=== PATIENT | male | born 1945 | race Caucasian/White ===

== ENCOUNTER → 2022-05-17 11:16 | Outpatient (CLI) | payer MEDICARE, SELFPAY ==
--- NOTE | ~2022-05-17 | XR_ITS ---
EXAMINATION: XR lumbar spine 2-3V DATE: 05/17/2022 11:38 INDICATION: Low back pain TECHNIQUE: Anteroposterior and lateral views of the lumbar spine, and cone-down lateral view of the l umbosacral junction were obtained. COMPARISON: None FINDINGS: There are 4 mm of retrolisthesis of L2 on L3 and 2 mm of anterolisthesis of L3 on L4. The v ertebral body heights are normal. Laminectomy changes are present at L4-5. There is severe loss of in tervertebral disc space height at L2-3 and L3-4 and moderate loss of disc space height throughout the remainder of the lumbar spine. Degenerative osteophytes project from the anterior endplates of multi ple vertebral bodies. Cholelithiasis is noted. There is moderate osteoarthritis of the hips. IMPRESSION: 1. Severe lumbar spondylosis without acute findings. Reviewed, dictated and finalized at location B.
== END ==
PROVIDERS: PCP Nurse Practitioner; Visit Provider Nurse Practitioner
DX: M47.896 Other spondylosis, lumbar region (principal)
CPT/HCPCS: 72100

== ENCOUNTER 2022-07-12 08:30 | Outpatient (RCR) | payer MEDICARE, SELFPAY ==
--- NOTE | 2022-06-14 08:16 | BUPTOPEVAL1 ---
Assessment and note entered by Anastasiya Santizo, PT Evaluation Information Assessment Status Evaluation Diagnosis low back pain Onset 05/14/22 Subjective Information Was at driving range day before, was hitting a 100 balls. the next day was uncomfortable was on 13th hole using a 3 wood club. As soon as hit the ball , felt like somebody stabbed me in the back . Has not used a golf club since. Initially was unable to walk, leaning on irizarry to get to bathroom. Has improved in recent weeks. But has not tried returning to golf. Prior Level of Function: playing golf 4-5x / wk Reported Pain Level Pain Score 3: Self Report Additional Pain Score Comments R side lower back Assessment PT Clinical Summary Pt presents w/ c/o low back pain reports R>L. Notes occurred approx one month ago while golfing. Had severely increased pain at the moment with a feeling of being stabbed in the back. Since this point, has improved in his pain however pain has not completely resolved, nor has pt been able to return to high level activities such as golfing. Evaluation today shows decreased lumbar ROM, RLE leg length increase compared to left w/ compensatory left lateral shift, possible inominate alignment issue, decreased BLE and hip flexibility, decreased lumbopelvic muscle stabilizer strength. These deficits are likely slowing pt recovery and predispose him to reinjury . Thus pt would greatly benefit from physical therapy to address deficits, educate pt in appropriate core stability with high level activities return to PLOF without pain. Plan of Care Interventions Electrical Stimulation,Hot Pack/Cold Pack,Manual Therapy,Neuro Re-education,Therapeutic Activities, Therapeutic Exercise PT Services Indicated Yes Treatment Frequency and 2x weekly x 4 weeks Duration These treatments will address the objective and functional deficits as defined above. The patient will be advanced safely and appropriately in order for the patient to progress towards his/her prior level of function. Additional exercises will be introduced and as well as a comprehensive home exercise program upon discharge, if needed, ?to ensure carryover of functional gains achieved in the clinic. This treatment plan has been reviewed and agreement upon by the patient.
--- NOTE | 2022-07-12 09:13 | PTOPDC ---
Assessment and note entered by Anastasiya Santizo, PT Discharge Information Assessment Status Discharge Diagnosis low back pain Onset 05/14/22 Subjective Information No problem sitting, is stiff but pain is minimal. Does his exercises and uses an ice pack after. Prior Level of Function: playing golf 4-5x / wk. Season is over and won't play again until Spring. States usually prior to new season, will go to chiropractor to get ready and will also take a few lessons from the pro to loosen up, get his swing back and set himself up. Shooting pain is all gone. States is not having to take OTC pain medication near as much Reported Pain Level Pain Score 1: Self Report Assessment PT Clinical Summary Pt has attended therapy consistently, performed his HEP, and followed instructions related to use of heel lift. Pt also demo's smoother range of motion, improved standing postures, improved hip and hamstring flexibility, improved glute strength . He reports significant improvement in pain with highest pain level decreasing from 7/10 to 2/10 with pt requiring less OTC pain medication to manage discomfort. Pt reports he is able to perform all activities he wishes without pain, is continuing his HEP, and eas educated today on home TENS unit purchase and instructions. As Pt has met his personal goals, he is being discharged from therapy at this time. He was also educated in when to return to therapy if needed in the future . Plan of Care PT Services Indicated No
== END 2022-07-12 11:28 | disposition home or self-care (01) ==
LOC: ANHPT 08:30
PROVIDERS: PCP Nurse Practitioner; Visit Provider Nurse Practitioner
DX: M54.50 Low back pain, unspecified (principal)
CPT/HCPCS: 97014; 97110; 97112; 97140; 97162; 97530; G0283

== ENCOUNTER 2023-07-31 10:18 | Outpatient (CLI) | payer MEDICARE, SELFPAY ==
[2023-07-31 19:39] LABS: Basophils Percent Auto 0.4 % (0.2-1.2); Eosinophils Absolute Auto 0.1 K/mm3 (0-0.3); Eosinophils Percent Auto 1.4 % (0-4.4); Hematocrit 43.9 % (42.0-52.0); Hemoglobin 14.5 g/dL (14.0-18.0); Immature Granulocyte Absolute 0.02 K/mm3 (0.00-0.031); Immature Granulocyte Percent A 0.3 % (0-0.5); Lymphocytes Absolute Auto 1.79 K/mm3 (0.9-3.2); Lymphocytes Percent Auto 25.9 % (18.3-44.2); Mean Corpuscular Hemoglobin 28.2 pg (26-34); Mean Corpuscular Volume 85.4 fl (80-100); Monocytes Absolute Auto 0.5 K/mm3 (0.1-0.6); Monocytes Percent Auto 6.9 % (2.6-8.5); Neutrophils Absolute Auto 4.5 K/mm3 (1.3-6.7); Neutrophils Percent Auto 65.1 % (45.5-73.1); Platelet Count Result 217 k/mm3 (150-375); Red Blood Count 5.14 M/mm3 (4.6-6.20); Red Cell Distribution Width 13.1 % (11.5-14.5); White Blood Count 6.9 K/mm3 (4.5-10.0)
[2023-07-31 20:01] LABS: Alanine Aminotransferase 44 U/L (6-50); Albumin Level 4.4 g/dL (3.5-5.1); Alkaline Phosphatase 70 U/L (38-126); Anion Gap 5 mmol/L (8-16); Aspartate Amino Transferase 53 U/L (17-59); Blood Urea Nitrogen 15 mg/dL (9-20); Calcium 9.4 mg/dL (8.4-10.2); Carbon Dioxide 29 mmol/L (22-30); Chloride 102 mmol/L (98-107); Cholesterol 144 mg/dL (0-200); Estimated Glomerular Filt Rate > 60; Glucose 175 mg/dL (65-110); HDL Direct 35 mg/dL; Sodium 136 mmol/L (137-145); Triglycerides 192 mg/dL (<150)
[2023-07-31 20:12] LABS: LDL Cholesterol Direct 78 mg/dL
[2023-07-31 20:31] LABS: Prostate Specific Antigen 2.2 ng/mL (< OR = 4.0)
[2023-07-31 21:01] LABS: Hemoglobin A1C 9.5 % (<5.7)
== END 2023-07-31 10:19 | disposition home or self-care (01) ==
LOC: ANHGOSHLAB 10:20
PROVIDERS: PCP Nurse Practitioner; Visit Provider Nurse Practitioner
DX: Z12.5 Encounter for screening for malignant neoplasm of prostate (principal); E78.2 Mixed hyperlipidemia; E11.9 Type 2 diabetes mellitus without complications; I10 Essential (primary) hypertension; R74.8 Abnormal levels of other serum enzymes
CPT/HCPCS: 36415; 80053; 80061; 83036; 84153; 85025; G0103

== ENCOUNTER 2024-01-01 08:25 | Outpatient (CLI) | payer MEDICARE, SELFPAY ==
[2024-01-01 13:22] LABS: Alanine Aminotransferase 28 U/L (6-50); Albumin Level 4.6 g/dL (3.5-5.1); Alkaline Phosphatase 66 U/L (38-126); Anion Gap 9 mmol/L (4-12); Aspartate Amino Transferase 40 U/L (17-59); Bilirubin,Total 1.1 mg/dL (0.2-1.3); Blood Urea Nitrogen 25 mg/dL (9-20); Calcium 9.5 mg/dL (8.4-10.2); Carbon Dioxide 27 mmol/L (22-30); Chloride 103 mmol/L (98-107); Estimated Glomerular Filt Rate > 60; Glucose 156 mg/dL (65-110); Potassium 4.1 mmol/L (3.4-5.0); Sodium 139 mmol/L (137-145)
[2024-01-01 17:47] LABS: Hemoglobin A1C 6.9 % (<5.7)
== END 2024-01-01 08:26 | disposition home or self-care (01) ==
LOC: ANHGOSHLAB 08:28
PROVIDERS: PCP Nurse Practitioner; Visit Provider Nurse Practitioner
DX: E11.9 Type 2 diabetes mellitus without complications (principal)
CPT/HCPCS: 36415; 80053; 83036